=== PATIENT | male | born 1985 | race Caucasian/White ===

== ENCOUNTER 2016-11-10 18:30 | Emergency (ER) | payer BC ==
[2016-11-10] MEDS ORDERED: BUPIVACAINE HCL 0.75% INJ/PF (7.5 MG/1 ML) 10 ML SDV INJ ONE (20:52)
--- NOTE | 2016-11-10 21:05 | ER Document Report ---
HPI - HPI Pain Level: 5 Notes: Patient is a 30-year-old male who presents to the ED complaining of right lower dental pain 1 week. Denies discharge. States he has a fractured tooth. Patient states that he is from out of town and was seen by provider in [place] who placed him on amoxicillin 875 mg twice daily and that he is still taking that medication. Patient states that he is primarily just having pain and would like something for his pain. Patient also states that he is going to contact a dentist tomorrow to see if he can get him and have it excised. He has been using [id number] meds without any relief. He still eating and drinking without any problems but does have a decreased appetite. The pain does not radiate. No known drug allergies. No daily medications aside from his antibiotic. Denies any headaches, dizziness, fever, ear pain, facial swelling, nasal congestion/discharge, sore throat, dysphagia, dysphasia, cough, wheeze, shortness of breath, chest pain, palpitations, syncope, abdominal pain, nausea/vomiting/diarrhea, dysuria, joint pains, rash. - ROS Notes: REVIEW OF SYSTEMS: CONSTITUTIONAL : Denies fever, chills, or sweats. Denies recent illness. EENT: see hpi CARDIOVASCULAR: Denies chest pain. Denies palpitations or racing or irregular heart beat. Denies ankle edema. RESPIRATORY: Denies cough, cold, or chest congestion. Denies shortness of breath, difficulty breathing, or wheezing. GASTROINTESTINAL: Denies abdominal pain or distention. Denies nausea, vomiting , or diarrhea. Denies blood in vomitus, stools, or per rectum. Denies black, tarry stools. Denies constipation. GENITOURINARY: Denies difficulty urinating, painful urination, burning, frequency, blood in urine, or discharge. MUSCULOSKELETAL: Denies back or neck pain or stiffness. Denies joint pain or swelling. SKIN: Denies rash, lesions or sores. ALL OTHER SYSTEMS REVIEWED AND NEGATIVE. Dictation was performed using [employer] voice recognition software - CARDIOVASCULAR Cardiovascular: DENIES: Chest pain - DERM Skin Color: Normal Past Medical History - Social History Smoking Status: Current Every Day Smoker Chew tobacco use (# tins/day): No Frequency of alcohol use: None Drug Abuse: None Family History: Reviewed & Not Pertinent Patient has suicidal ideation: No Patient has homicidal ideation: No Renal/ Medical History: Denies: Hx Peritoneal Dialysis Vertical Provider Document - CONSTITUTIONAL Notes: PHYSICAL EXAMINATION: GENERAL: Well-appearing, well-nourished and in no acute distress. HEAD: Atraumatic, normocephalic. No facial swelling. EYES: Pupils equal round and reactive to light, extraocular movements intact, sclera anicteric, conjunctiva are normal. ENT: EAC clear b/l. TM's intact b/l without erythema, fluid, or perforation. Nares patent and without discharge. oropharynx clear without exudates. No tonsilar hypertrophy or erythema. Moist mucous membranes. No sinus tenderness. Mouth: poor dentition. + fractured # 29. No erythema, inflammation, or discharge noted. + tenderness to palpation. NECK: Normal range of motion, supple without lymphadenopathy. No steven's appreciated or other mass/swelling. LUNGS: Breath sounds clear to auscultation bilaterally and equal. No wheezes rales or rhonchi. HEART: Regular rate and rhythm without murmurs, rubs, gallops. Extremities: No cyanosis, clubbing, or edema b/l. Peripheral pulses 2+. Capillary refill less than 3 seconds. NEUROLOGICAL: Normal sensory, motor exams PSYCH: Normal mood, normal affect. SKIN: Warm, Dry, normal turgor, no rashes or lesions noted. - INFECTION CONTROL TRAVEL OUTSIDE OF THE [place] IN LAST 30 DAYS: No - RESPIRATORY O2 Sat by Pulse Oximetry: 98 Course - Re-evaluation Re-evalutation: 11/10/16 22:01 Patient is an afebrile, well-hydrated, 30-year-old male who presents with a toothache, secondary to fracture. Vitals are stable. PE otherwise unremarkable. No infection suspect at this time as patient has been on amoxicillin for the last 5 days and PE is unremarkable otherwise. Dental block was performed successfully today without complications. Conservative measures for symptoms otherwise. Good dental hygiene encouraged. Patient is to call the dentist in the next couple days for extraction. Recheck PCM this week. Return to ED with any worsening/concerning symptoms as reviewed. Patient is in agreement. Low suspicion for any deep space infection (i.e. retropharyngeal abscess or steven's angina), meningitis, intracranial hemorrhage, or airway compromise. - Vital Signs Vital signs: Temp Pulse Resp BP Pulse Ox 85 16 172/115 H 98 11/10/16 18:56 11/10/16 18:56 11/10/16 18:56 11/10/16 18:56 Procedures - Additional Procedures Dental block Time performed: 21:00 Additional Procedures: Other - dental block Notes: 11/10/16 22:00 Procedure, risks, benefits reviewed with the patient about a dental block Right lower jaw was blocked using 3.5 mL's of 0.75% Sensorcaine with a 21-gauge needle. Reported dental pain was said to have become numb within about 10 seconds No complications No blood loss Patient tolerated procedure well Discharge - Discharge Clinical Impression: Toothache Condition: Stable Disposition: HOME, SELF-CARE Instructions: Toothache ([facility]) Additional Instructions: Keep mouth clean [place] and floss daily Tylenol/ibuprofen as needed Salt water gargles, peroxide rinses Call for dental for an appointment Recheck with your PCM this week Return to the ED with any worsening symptoms and/or development of fever, headache, jaw pain, facial/mouth swelling, chest pain, palpitations, syncope, shortness of breath, trouble breathing, abdominal pain, n/v/d, or other worsening symptoms that are concerning to you. Referrals: [facility] [Provider Group] - Follow up as needed
[2016-11-10 21:24] VITALS: BP 143/100
== END 2016-11-10 21:20 | disposition home or self-care (01) ==
LOC: ER 18:30
PROC: 3E0T3BZ Introduction of Anesthetic Agent into Peripheral Nerves and Plexi, Percutaneous Approach (ICD-10-PCS; principal; 2016-11-10)
DX: K08.89 Other specified disorders of teeth and supporting structures (principal); R63.0 Anorexia; F17.200 Nicotine dependence, unspecified, uncomplicated
CPT/HCPCS: 99282